=== PATIENT | male | born 1985 | race Two or more races ===

== ENCOUNTER 2022-08-27 18:30 | Emergency (ER) | payer OTHER ==
[~2022-08-27] VITALS: Ht 175.3 cm; Wt 104.3 kg
== END 2022-08-27 21:23 | disposition home or self-care (01) ==
LOC: ER 18:30
DX: T67.5XXA Heat exhaustion, unspecified, initial encounter (principal); X58.XXXA Exposure to other specified factors, initial encounter; Y93.89 Activity, other specified; Y92.89 Other specified places as the place of occurrence of the external cause; Y99.8 Other external cause status; Z91.018 Allergy to other foods